=== PATIENT | male | born 1970 | race Caucasian/White ===

== ENCOUNTER 2016-08-17 06:47 | Emergency (ER) | payer OTHER ==
[~2016-08-17] VITALS: Ht 177.8 cm; Wt 83.1 kg
[2016-08-17 09:09] LABS: ADD MIUA? YES; BILIRUBIN NEGATIVE; BLOOD LARGE; COLOR YELLOW ((YELLOW)); GLUCOSE (STRIP) NEGATIVE; KETONES NEGATIVE; LEUKOCYTES TRACE; NITRITE NEGATIVE; PROTEIN (STRIP) 100; SPECIFIC GRAVITY 1.027 (1.000-1.030); UROBILINOGEN 0.2 MG/DL (0.2-1.0)
[2016-08-17 10:04] LABS: BACTERIA RARE /HPF; EPITHELIAL CELLS RARE /HPF; MUCUS 4+ /LPF; RED BLOOD CELLS TNTC /HPF (0-5); UCUL ADDED? NO
[2016-08-17] MEDS ORDERED: HYDROCODON-ACE1 EA11 PO (10:10)
[2016-08-17] MEDS ORDERED: ZOFRAN ODT4 MG PO (10:10)
[2016-08-17] MEDS ORDERED: FLOMAX0.4 MG PO (10:10)
[2016-08-17 10:20] VITALS: BP 101/70
== END 2016-08-17 10:21 | disposition home or self-care (01) ==
LOC: EME 06:47
PROVIDERS: Physician Assistant Medical
DX: N20.0 Calculus of kidney (principal); E11.9 Type 2 diabetes mellitus without complications; Z87.442 Personal history of urinary calculi; F17.200 Nicotine dependence, unspecified, uncomplicated
CPT/HCPCS: 74176; 81003; 99281; 99284; J1885

== ENCOUNTER 2016-11-24 07:03 | Emergency (ER) | payer OTHER ==
[~2016-11-24] VITALS: Ht 177.8 cm; Wt 81.0 kg
[~2016-11-24 07:03] MED LIST: FLOMAX0.4 MG PO; HYDROCODON-ACE1 EA11 PO; ZOFRAN ODT4 MG PO
[2016-11-24 07:35] LABS: ADD MIUA? YES; BILIRUBIN NEGATIVE; BLOOD LARGE; COLOR YELLOW ((YELLOW)); GLUCOSE (STRIP) NEGATIVE; KETONES 5; LEUKOCYTES NEGATIVE; NITRITE NEGATIVE; PROTEIN (STRIP) 100; SPECIFIC GRAVITY 1.019 (1.000-1.030)
[2016-11-24 07:39] LABS: HEMATOCRIT 37.8 % (38.0-50.0); MCH 32.1 PG (29.0-34.0); MCHC 34.7 G/DL (30.0-36.0); MCV 92.6 FL (86-99); PLATELET COUNT 301 K/uL (156-360); RBC DIS.WIDTH-CV 12.2 % (11.8-14.6); RBC DIS.WIDTH-SD 41.7 % (39-53); RED BLOOD COUNT 4.08 M/uL (4.00-5.50); WHITE BLOOD COUNT 6.4 K/uL (4.1-10.2)
[2016-11-24 07:46] LABS: BACTERIA NONE SEEN /HPF; CALCIUM OXALATE CRYSTALS 2+ /HPF; EPITHELIAL CELLS RARE /HPF; MUCUS TRACE /LPF; RED BLOOD CELLS TNTC /HPF (0-5); WHITE BLOOD CELLS 0-5 /HPF (0-5)
[2016-11-24 07:48] LABS: CHLORIDE 107 mEq/L (99-109); POTASSIUM 4.3 mEq/L (3.7-5.4); SODIUM 139 mEq/L (136-147)
[2016-11-24 07:50] LABS: GLUCOSE 135 mg/dL (70-99)
[2016-11-24 07:51] LABS: ANION GAP 7 MEQ/L (2-14)
[2016-11-24 07:52] LABS: TOTAL BILIRUBIN 0.3 mg/dL (0.0-1.0)
[2016-11-24 07:54] LABS: ALKALINE PHOSPHATASE 43 IU/L (3-129); GFR ESTIMATE (CALCULATED) > 59 mL/min/
[2016-11-24 07:55] LABS: UREA NITROGEN (BUN) 17 mg/dL (9-23)
[2016-11-24] MEDS ORDERED: NAPROSYN500 MG PO (09:27)
[2016-11-24] MEDS ORDERED: FLOMAX0.4 MG PO (09:27)
[2016-11-24] MEDS ORDERED: PERCOCET 5/31 TABLET PO (09:27)
[2016-11-24 09:44] VITALS: BP 115/83
[2016-11-25] MEDS ORDERED: FLOMAX0.4 MG PO (16:14)
[2016-11-25] MEDS ORDERED: PERCOCET 5/31 TABLET PO (16:14)
[2016-11-25] MEDS ORDERED: SEPTRA DS TABL1 EACH PO (16:15)
[2016-11-25] MEDS ORDERED: GLUCOPHAGE500 MG PO (16:15)
[2016-11-25] MEDS ORDERED: JANUVIA25 M1 PO (16:15)
[2016-11-25] MEDS ORDERED: PRINIVIL5 MG PO (16:16)
[2016-11-25] MEDS ORDERED: FENOFIBRATE160 M1 PO (16:16)
[2016-11-25] MEDS ORDERED: ZETIA10 MG PO (16:18)
== END 2016-11-24 09:46 | disposition home or self-care (01) ==
LOC: EME 07:03
PROVIDERS: Nurse Practitioner Family
DX: N20.1 Calculus of ureter (principal); Z87.442 Personal history of urinary calculi; F17.200 Nicotine dependence, unspecified, uncomplicated
CPT/HCPCS: 74176; 80053; 81003; 85027; 99281; 99285; J1885; J3010; J7030

== ENCOUNTER 2016-11-27 09:22 | Day surgery (SDC) | payer OTHER ==
[~2016-11-27] VITALS: Ht 177.8 cm; Wt 81.7 kg
[~2016-11-27 09:22] MED LIST changes: +FENOFIBRATE160 M1 PO; +GLUCOPHAGE500 MG PO; +JANUVIA25 M1 PO; +NAPROSYN500 MG PO; +PERCOCET 5/31 TABLET PO; +PRINIVIL5 MG PO; +SEPTRA DS TABL1 EACH PO; +ZETIA10 MG PO
[2016-11-27 09:43] VITALS: BP 118/77
[2016-11-27 10:24] LABS: POINT-OF-CARE METER ID UU13113694
[2016-11-27 11:38] LABS: POINT-OF-CARE METER ID UU13113675; POINT-OF-CARE USER ID ADMSLT55
[2016-11-27 12:05] VITALS: BP 111/77
[2016-11-27 12:39] VITALS: BP 112/75
== END 2016-11-27 12:45 | disposition home or self-care (01) ==
LOC: SDC 09:22
PROVIDERS: Urology
PROC: 0T778DZ Dilation of Left Ureter with Intraluminal Device, Via Natural or Artificial Opening Endoscopic (ICD-10-PCS; principal; 2016-11-27)
PROC: 0TF78ZZ Fragmentation in Left Ureter, Via Natural or Artificial Opening Endoscopic (ICD-10-PCS; principal; 2016-11-27)
DX: N13.2 Hydronephrosis with renal and ureteral calculous obstruction (principal); R11.0 Nausea; I10 Essential (primary) hypertension; E11.9 Type 2 diabetes mellitus without complications; E78.5 Hyperlipidemia, unspecified; F17.210 Nicotine dependence, cigarettes, uncomplicated; Z79.84 Long term (current) use of oral hypoglycemic drugs; Z87.442 Personal history of urinary calculi
CPT/HCPCS: 74420; 82365 90; 82948; 93005; C1876; J0690; J1100; J1170; J1580; J2405; J3010; J7050